=== PATIENT | female | born 1990 | race Caucasian/White ===

== ENCOUNTER 2019-04-10 17:40 | Emergency (ER) | payer OTHER ==
[~2019-04-10] VITALS: Ht 165.1 cm; Wt 197.3 kg
[2019-04-10 18:04] VITALS: Ht 165.1 cm; Wt 197.3 kg
[2019-04-10 18:43] VITALS: BP 133/77
== END 2019-04-10 18:49 | disposition home or self-care (01) ==
LOC: ED 17:40
DX: S50.861A Insect bite (nonvenomous) of right forearm, initial encounter (principal); W57.XXXA Bitten or stung by nonvenomous insect and other nonvenomous arthropods, initial encounter; Y93.89 Activity, other specified; Y92.89 Other specified places as the place of occurrence of the external cause; Y99.8 Other external cause status

== ENCOUNTER 2019-11-19 15:30 | Emergency (ER) | payer OTHER, SELFPAY ==
[~2019-11-19] VITALS: Ht 160 cm; Wt 192.8 kg
[2019-11-19 15:30] VITALS: BP 125/77
== END 2019-11-19 16:32 | disposition home or self-care (01) ==
LOC: ED 15:30
DX: R51 Headache (principal); B34.9 Viral infection, unspecified; J45.909 Unspecified asthma, uncomplicated; Z20.828 Contact with and (suspected) exposure to other viral communicable diseases
CPT/HCPCS: U0003-CS